=== PATIENT | male | born 1945 | race Caucasian/White ===

== ENCOUNTER 2025-04-13 22:26 | Emergency (ER) | payer OTHER, MEDICARE ==
[~2025-04-13] VITALS: Ht 182.9 cm; Wt 76.6 kg
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
[2025-04-13 22:42] VITALS: TEMP 98.5
[2025-04-13 22:56] LABS: MEAN PLATELET VOLUME 8.8 FL (7.4-10.4); RED CELL DISTRIBUTION WIDTH 13.6 % (11.5-14.5)
[2025-04-13 23:14] LABS: CREATININE 1.24 MG/DL (0.60-1.10); ETHANOL < 10 MG/DL (<10); TOTAL CARBON DIOXIDE 27.0 MMOL/L (24-32); eCRCL 52 ML/MIN; eGFR 56 ML/MIN
[2025-04-13 23:34] LABS: LEUKOCYTE ESTERASE ,URINE NEGATIVE (Neg); NITRITES, URINE NEGATIVE (Neg); OCCULT BLOOD,URINE SMALL (Neg)
[2025-04-13 23:38] LABS: URINE AMPHETAMINE SCREEN NEGATIVE (Neg); URINE BARBITUATE SCREEN NEGATIVE (Neg); URINE BENZODIAZEPINES SCREEN NEGATIVE (Neg); URINE CANNABINOID SCREEN NEGATIVE (Neg); URINE COCAINE SCREEN NEGATIVE (Neg); URINE METHADONE SCREEN NEGATIVE (Neg); URINE OPIATE SCREEN NEGATIVE (Neg); URINE PHENCYCLIDINE SCREEN NEGATIVE (Neg)
[2025-04-13 23:41] LABS: UA COLLECTION TYPE CLN CATCH MIDSTREAM
[2025-04-13 23:43] LABS: SQUAMOUS EPITHELIAL CELL,UR FEW /LPF (FEW)
[2025-04-14] MEDS ORDERED: QUET-1 PO ×2 (00:30)
[2025-04-14] MEDS ORDERED: FINA5TAB11 PO (00:30)
[2025-04-14] MEDS ORDERED: ACET-1008 PO (00:35)
[2025-04-14] MEDS ORDERED: QUET25TA PO (00:35)
[2025-04-14] MEDS ORDERED: docusate PO (00:35)
[2025-04-14] MEDS ORDERED: docusate sod 100mg capsule PO PRN (01:15)
[2025-04-14 06:12] VITALS: BP 150/112; PULSE 77; RESP 16; O2SAT 97
[2025-04-14] MEDS: haloperidol lactate 5mg/ml inj IM ONE (13:35)
== END 2025-04-14 16:36 | disposition home or self-care (01) ==
LOC: ER 22:26
DX: G30.9 Alzheimer's disease, unspecified (principal); F02.818 Dementia in other diseases classified elsewhere, unspecified severity, with other behavioral disturbance; F02.84 Dementia in other diseases classified elsewhere, unspecified severity, with anxiety; Z88.0 Allergy status to penicillin; Z20.822 Contact with and (suspected) exposure to COVID-19; Z79.899 Other long term (current) drug therapy
CPT/HCPCS: 36415; 80048; 80305; 80320; 81001; 84443; 85025; 87811; 99285